=== PATIENT | female | born 1960 | race Caucasian/White ===

== ENCOUNTER 2024-10-24 18:28 | Inpatient (IN) | payer MEDICARE, SELFPAY ==
[2024-10-22 13:09] VITALS: BP 142/75
[2024-10-22 13:46] VITALS: BMI 22.0
[2024-10-22 13:53] VITALS: BP 134/62
[2024-10-22 14:00] VITALS: BP 137/76
--- NOTE | 2024-10-22 14:12 | ED.GENMED ---
History of Present Illness
General
Chief Complaint: Change in Mental Status
Time Seen by Provider: 10/22/24 14:11
History of Present Illness
History of Present Illness:
TIME OF INITIAL EVALUATION
- 2:15 PM
REVIEW OF OLD RECORDS
- The patient had an echo in 2020 that showed a normal EF at that time
CHIEF COMPLAINT(S)
Difficulty swallowing and confusion
HISTORY OF PRESENT ILLNESS
The patient is a 64-year-old female with a history of digestive issues including ulcers. For the past two months, she has experienced worsening difficulty swallowing. She describes being unable to move food effectively, stating, 'My food is just
stuck in my throat,' and occasionally aspirating liquids. She was scheduled for an endoscopy with a resolution agent in the coming week. Recently, starting two days ago, she began experiencing confusion and hallucinations, such as seeing people
who aren�t there and colors appearing brighter than usual. This is a new problem for her, with no past psychiatric history. The confusion was noted by her niece, who reported these unusual behaviors.
ADDITIONAL HISTORY OBTAINED FROM SOURCES OTHER THAN THE PATIENT
Per the niece, the patient appeared confused, talking to imaginary people yesterday, a new symptom without prior psychiatric history.
CHRONIC MEDICAL CONDITIONS SIGNIFICANTLY AFFECTING CARE
The patient has a history of digestive issues, including stomach ulcers.
MEDICATIONS
The patient is currently on the following medications:
- Gabapentin
- Glipizide
- Finasteride
- Levothyroxine 88 micrograms
REVIEW OF SYSTEMS
- Gastrointestinal: Difficulty swallowing food; unable to move food effectively, occasionally aspirating liquids.
- Neurological/Psychiatric: Confusion, seeing hallucinations (e.g., talking to imaginary people, enhanced perception of colors).
PHYSICAL EXAM
General: Alert, no acute distress.
Skin: Warm, dry.
Head: Normocephalic, atraumatic.
Neck: Supple, trachea midline.
Eye Ears, nose, mouth and throat: Oral mucosa moist.
Cardiovascular: Normal peripheral perfusion, No edema.
Respiratory: Respirations are non-labored.
Gastrointestinal: Abdomen nondistended.
Back: Normal range of motion, Normal alignment.
Musculoskeletal: Normal range of motion, normal strength.
Neurological: Alert and oriented to person, place, time, and situation, No focal neurological deficit observed, however she did state that [facility] was [facility]
Psychiatric: For the most part has been acting appropriately but appears to be slightly confused at times
PROBLEM LIST
Acute:
- Dysphagia
- Confusion and hallucinations
PLAN
1. Obtain blood work, including electrolyte panel, to check for possible electrolyte imbalances due to recent diarrhea and associated risk of low sodium.
2. Arrange for a computed tomography (CT) scan of the brain to rule out structural causes of delirium given the acute change in mental status.
3. Review and obtain the patients complete medication list from home for a comprehensive assessment.
4. Continue with the planned gastrointestinal endoscopy for further evaluation of swallowing difficulties.
DIFFERENTIAL DIAGNOSIS
The Differential Diagnosis includes, in no particular order and is not limited to:
1. Esophageal stricture or obstruction
2. Gastroesophageal reflux disease
3. Lower esophageal ring
4. Esophageal motility disorder
5. Pharyngeal diverticulum
6. Electrolyte imbalance (e.g., hyponatremia)
7. Central nervous system causes (e.g., stroke, tumor)
8. Delirium due to infection or other systemic causes
9. Drug-induced confusion or side effects
10. Psychiatric etiologies (e.g., brief psychotic disorder)
RADIOLOGY
- CT head shows no acute abnormality
LABS
- White count 8.1, hemoglobin 11.9, sodium normal, chemistries unremarkable, the patient has evidence of urinary tract infection, alcohol undetected
UPDATE
-SUMMARY OF ENCOUNTER
The patient presented to the emergency department with symptoms of dysphagia and acute confusion with recent hallucinations. Urine analysis showed signs of infection, raising concerns about a possible urinary tract infection contributing to her
altered mental status. The possibility of a combination of factors affecting the altered mental status was considered. Due to the significant change in mental status, the decision leaned towards hospital admission for intravenous antibiotics rather
than discharge with oral antibiotics. Efforts were made to verify the patients medication list, but it proved challenging due to limited access on a Thursday afternoon.
DISPOSITION
Awaiting hospitalist consultation for possible admission.
ASSESSMENT
The patients acute confusion and hallucinations may be due to infection, likely a urinary tract infection, leading to possible delirium. Hospital admission is considered for further evaluation and initiation of IV antibiotics.
MANAGEMENT OF THE PATIENTS CARE WAS DISCUSSED WITH
Consulted with a hospitalist regarding potential inpatient care and management with IV antibiotics.
PLAN
Plan includes admission for inpatient care, initiation of IV antibiotics, and continued monitoring of the patients mental and physical status. Further workup and management will continue in the hospital setting.
MEDICATION RECONCILIATION
Efforts to obtain the patients medication list were made but were delayed due to the weekend. Consult with pharmacy support was considered to assist in obtaining medication information.
MEDICAL DECISION MAKING
1. Number and Complexity of Problems Addressed:
Chronic conditions affecting care include a history of digestive issues, including stomach ulcers. Differential diagnosis considerations include esophageal stricture or obstruction, gastroesophageal reflux disease, lower esophageal ring, esophageal
motility disorder, pharyngeal diverticulum, electrolyte imbalance (e.g., hyponatremia), central nervous system causes (e.g., stroke, tumor), delirium due to infection or other systemic causes, drug-induced confusion or side effects, and psychiatric
etiologies (e.g., brief psychotic disorder).
2. Data: Amount and/or Complexity of Data Reviewed and Analyzed
Category 1:
- Initial urine analysis indicated signs of infection.
- Communication with the pharmacy was considered to verify medication usage.
Category 2:
- Input from an independent historian was considered as the patients cognitive status was altered.
Category 3:
- Discussion of management was conducted with a hospitalist regarding possible inpatient care for IV antibiotic administration.
3. Risk:
Prescription drug management was necessary for potential IV antibiotics. Consideration of admission/observation due to significant change in mental status and infection, with risks of complications from untreated or worsening conditions. This
included potential escalation of care depending on hospitalist evaluation.
DIAGNOSIS
- Urinary Tract Infection (N39.0)
- Acute Confusion/Delirium (R41.0)
Phy Exam
Physical Exam
Physical Exam:
See HPI
Course
Orders/Labs/Results
Orders:
Orders
10/22/24 13:59
Urinalysis Reflex To Culture Urgent
Date Specimen was Collected: 10/22/24
Time Specimen was Collected: 13:57
Urine Microscopic Reflex Cult Urgent
Urine Culture Urgent
IVIS Source: U
Specimen Description:
Date Specimen was Collected: 10/22/24
Time Specimen was Collected: 13:57
10/22/24 14:20
0.9% Sodium Chloride 500 ml [Nss] 500 ml IV BOLUS
10/22/24 14:21
CT Head W/o Iv Contrast Urgent
Comment:
Reason For Exam: alt ms
10/22/24 14:31
Alcohol Urgent
Complete Blood Count/With Diff Urgent
Comprehensive Metabolic Panel Urgent
Lipase Urgent
TSH Reflex To Free T4 Urgent
Abnormal Lab Results
10/22/24 10/22/24
13:59 14:31
RBC 4.02 L 10^6/uL
(4.20-5.40)
Hgb 11.9 L g/dL
(12.0-16.0)
Hct 36.4 L %
(37.0-47.0)
MCHC 32.7 L g/dL
(33.0-37.0)
Absolute Monos (auto) 0.7 H 10^3/uL
(0.1-0.6)
Lymphocytes % 17.3 L %
(20.5-51.1)
BUN 21 H mg/dl
(7-17)
Ur Occult Blood Reflex 2+ A
(Negative)
Urine Nitrite (Reflex) Positive A
(Negative)
Leukocyte Esterase Rfl 3+ A
(Negative)
Urine WBC (Reflex) 60-70 A /HPF
(0-5)
Urine Bacteria (Reflex) Moderate A
(Negative)
Urine Albumin (Reflex) 1+ A
(Neg - Trace)
10/22/24 14:31
10/22/24 14:31
Vital Signs
Initial and Last Documented VS:
Initial Vital Signs
Temp Pulse Resp BP Pulse Ox
36.4 C 66 16 142/75 98
10/22/24 13:09 10/22/24 13:09 10/22/24 13:09 10/22/24 13:09 10/22/24 13:09
Last Documented Vital Signs
Temp Pulse Resp BP Pulse Ox
36.4 C 58 16 146/72 100
10/22/24 13:09 10/22/24 15:20 10/22/24 15:20 10/22/24 15:20 10/22/24 15:20
*Pulse Oximetry
SaO2: 98
Oxygen Mode of Delivery: Room air
Patient hypoxic: not evaluated
*Critical Care Note
Total Time (30-74mins, 75-104mins- exclusive of procedures): Not Applicable
ED Attending Note
-
Portions of this chart may have been created with voice recognition software.� Occasional wrong word or��sound alike� substitutions may have occurred due to the inherent limitations of voice recognition software.
Discharge Plan
Departure
Referrals:
Mitchell Cruz, [Family Provider, Family Practice]
Interventions
Interventions:
*Risk Screen - Suicide Last Done: 10/22/24 13:09
*General Assessment Last Done: 10/22/24 13:09
*Neglect/Abuse Screening Last Done: 10/22/24 13:46
*ED- Fall Risk Assessment Last Done: 10/22/24 13:46
*ED COVID-19 Vaccine History Last Done: 10/22/24 13:46
ED- Neurological Assessment Last Done: 10/22/24 13:46
Discharge Date and Time
Print Language: LUXEMBOURGER
[2024-10-22 14:13] LABS: Urine Character Slightly Cloudy (Clear)
[2024-10-22 14:27] LABS: Urine Red Blood Cell 0-2 /HPF (0-2); Urine Squamous Cell 0-2 /LPF (Few); Urine White Cell 60-70 /HPF (0-5)
[2024-10-22] MEDS: NSS 500 IV (14:43)
[2024-10-22 14:55] LABS: Hematocrit 36.4 % (37.0-47.0); Hemoglobin 11.9 g/dL (12.0-16.0); Mean Corp Hgb Conc. 32.7 g/dL (33.0-37.0); Mean Corpuscular Volume 90.5 fL (81.0-99.0); Nucleated Red Blood Cells % 0 %; Platelet Count 250 10^3/uL (130-400); Red Cell Dist. Width 13.5 % (11.5-14.5)
[2024-10-22 15:09] LABS: ALT (SGPT) 21 U/L (0-35); AST (SGOT) 30 U/L (14-36); Albumin 4.5 g/dl (3.5-5.0); Alkaline Phosphatase 44 U/L (38-126); Blood Urea Nitrogen 21 mg/dl (7-17); Calcium 9.8 mg/dl (8.4-10.2); Carbon Dioxide 29 mmol/L (22-30); Chloride 103 mmol/L (98-107); Estimated Creatinine Clearance 74 ml/min; Glucose 88 mg/dl (70-99); Lipase 26 U/L (23-300); Potassium 4.3 mmol/L (3.5-5.1); Sodium 137 mmol/L (135-145); Total Protein 7.2 g/dl (6.3-8.2); eGFR > 60.00
[2024-10-22 15:20] VITALS: BP 146/72
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
[2024-10-22] MEDS: ROCEPHIN 1000 MG IV (16:06)
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
[2024-10-22 17:46] VITALS: BMI 20.9
[2024-10-22 18:19] VITALS: BP 136/72
[2024-10-22] MEDS: NEURONTIN 300 MG PO (20:31)
[2024-10-22] MEDS: DITROPAN 10 MG PO (20:31)
[2024-10-22] MEDS: HEPARIN 5000 UNITS SC (20:31)
[2024-10-22 23:14] VITALS: BP 106/58
[2024-10-23] MEDS: ZANAFLEX 2 MG PO ×2 (03:23→11:45)
[2024-10-23] MEDS: MOTRIN 400 MG PO (03:32)
[2024-10-23] MEDS: SYNTHROID 100 MCG PO (06:15)
[2024-10-23 06:58] LABS: Hematocrit 34.0 % (37.0-47.0); Hemoglobin 10.9 g/dL (12.0-16.0); Mean Corp Hgb Conc. 32.1 g/dL (33.0-37.0); Mean Corpuscular Volume 92.4 fL (81.0-99.0); Nucleated Red Blood Cells % 0 %; Platelet Count 231 10^3/uL (130-400); Red Cell Dist. Width 13.7 % (11.5-14.5)
[2024-10-23 07:22] LABS: ALT (SGPT) 16 U/L (0-35); AST (SGOT) 23 U/L (14-36); Albumin 3.7 g/dl (3.5-5.0); Alkaline Phosphatase 43 U/L (38-126); Blood Urea Nitrogen 22 mg/dl (7-17); Calcium 8.5 mg/dl (8.4-10.2); Carbon Dioxide 27 mmol/L (22-30); Chloride 108 mmol/L (98-107); Estimated Creatinine Clearance 65 ml/min; Glucose 85 mg/dl (70-99); Potassium 4.1 mmol/L (3.5-5.1); Sodium 138 mmol/L (135-145); Total Protein 6.0 g/dl (6.3-8.2); eGFR > 60.00
[2024-10-23 07:25] VITALS: BP 135/90
[2024-10-23] MEDS: THERAGRAN 1 TABLET PO (07:27)
[2024-10-23] MEDS: VITAMIN D3 (cholecalciferol) 25 MCG PO (07:27)
[2024-10-23] MEDS: DITROPAN 10 MG PO ×2 (07:27→19:50)
[2024-10-23] MEDS: PROTONIX 40 MG PO (07:27)
[2024-10-23] MEDS: FEOSOL 325 MG PO (07:27)
[2024-10-23] MEDS: NEURONTIN 300 MG PO ×3 (07:28→20:48)
[2024-10-23] MEDS: HEPARIN 5000 UNITS SC ×2 (07:31→19:50)
[2024-10-23] MEDS: ROCEPHIN 1000 MG IV (11:45)
[2024-10-23] MEDS: STERILE WATER FOR INJECTION 10 ML IV (11:45)
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
[2024-10-23 16:00] VITALS: BP 122/72
[2024-10-23 23:30] VITALS: BP 114/66
[2024-10-24] MEDS: ZANAFLEX 2 MG PO ×2 (04:20→21:29)
[2024-10-24] MEDS: SYNTHROID 100 MCG PO (04:21)
[2024-10-24 07:16] VITALS: BP 132/79
[2024-10-24] MEDS: NEURONTIN 300 MG PO ×3 (08:06→21:27)
[2024-10-24] MEDS: DITROPAN 10 MG PO ×2 (08:06→19:32)
[2024-10-24] MEDS: THERAGRAN 1 TABLET PO (08:06)
[2024-10-24] MEDS: FEOSOL 325 MG PO (08:06)
[2024-10-24] MEDS: PROTONIX 40 MG PO (08:06)
[2024-10-24] MEDS: VITAMIN D3 (cholecalciferol) 25 MCG PO (08:07)
[2024-10-24] MEDS: HEPARIN 5000 UNITS SC ×2 (08:07→19:30)
[2024-10-24] MEDS: STERILE WATER FOR INJECTION 10 ML IV (12:12)
[2024-10-24] MEDS: ROCEPHIN 1000 MG IV (12:12)
[2024-10-24 15:10] VITALS: BP 130/69
--- NOTE | 2024-10-24 16:20 | CM ---
CM reviewed chart, patient seen bedside, reports she may need home infusion upon discharge. Patient reports she recently moved from [facility] to [facility] ([address] [facility] [address]), will need home infusion agency that is local
to [facility]. Patient reports she has administered home infusion in the past. CM will follow for all ID recommendations.
Plan; watch for home infusion needs, will need servicing agency in [place], [place]
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
[2024-10-24] MEDS: COLACE 100 MG PO (19:35)
[2024-10-24] MEDS: MOTRIN 400 MG PO (21:32)
[2024-10-24 23:20] VITALS: BP 145/77
[2024-10-25] MEDS: SYNTHROID 100 MCG PO (05:07)
[2024-10-25] MEDS: VITAMIN D3 (cholecalciferol) 25 MCG PO (07:14)
[2024-10-25] MEDS: THERAGRAN 1 TABLET PO (07:14)
[2024-10-25] MEDS: PROTONIX 40 MG PO (07:14)
[2024-10-25] MEDS: FEOSOL 325 MG PO (07:14)
[2024-10-25] MEDS: DITROPAN 10 MG PO (07:14)
[2024-10-25] MEDS: NEURONTIN 300 MG PO ×3 (07:15→22:57)
[2024-10-25] MEDS: HEPARIN 5000 UNITS SC ×2 (07:15→20:21)
[2024-10-25] MEDS: ZANAFLEX 2 MG PO ×2 (07:24→23:02)
[2024-10-25 07:55] VITALS: BP 159/86
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
[2024-10-25] MEDS: LEVAQUIN 500 MG PO (09:59)
[2024-10-25] MEDS: CITROMA 300 ML PO (12:12)
[2024-10-25] MEDS: DULCOLAX 10 MG RECTAL (12:12)
--- NOTE | 2024-10-25 15:26 | CM ---
CM reviewed chart, patient seen in chair, reports discomfort as she is unable to urinate/have BM. IMM verbally reviewed with patient, provided with copy, placed in chart. CM will continue to follow for all discharge planning needs.
Plan; home no needs
[2024-10-25 15:27] VITALS: BP 158/96
[2024-10-25] MEDS: FLOMAX 0.4 MG PO (16:11)
--- NOTE | 2024-10-25 18:06 | PTCARENOTE ---
Patient unable to void thus far today, bladder scan and straight cath x 2 with much relief. C/o constipation, rec'd ducolax suppository, mag citrate and a milk of molasses enema. Moderate relief noted by patient. Will cont to monitor.
--- NOTE | 2024-10-25 20:18 | PTCARENOTE ---
Pt having difficulty urinating. Pt straight cathed early in AM and x2 during the day. [employer]ink [employer] Supervisor notified, oxybutynin dose for PM to be held.
[2024-10-25] MEDS: DITROPAN PO (20:21)
[2024-10-25] MEDS: SENOKOT-S 2 TABLET PO (20:22)
[2024-10-25] MEDS: MOTRIN 400 MG PO (23:00)
[2024-10-25 23:19] VITALS: BP 158/82
[2024-10-26] MEDS: SYNTHROID 100 MCG PO (05:36)
[2024-10-26 07:00] VITALS: BP 124/72
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
[2024-10-26] MEDS: LEVAQUIN 500 MG PO (08:07)
[2024-10-26] MEDS: VITAMIN D3 (cholecalciferol) 25 MCG PO (08:08)
[2024-10-26] MEDS: NEURONTIN 300 MG PO (08:08)
[2024-10-26] MEDS: HEPARIN 5000 UNITS SC (08:08)
[2024-10-26] MEDS: THERAGRAN 1 TABLET PO (08:08)
[2024-10-26] MEDS: FEOSOL 325 MG PO (08:08)
[2024-10-26] MEDS: PROTONIX 40 MG PO (08:09)
[2024-10-26] MEDS: SENOKOT-S PO (08:34)
[2024-10-26] MEDS: DITROPAN 10 MG PO (08:35)
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
--- NOTE | 2024-10-26 09:39 | CM ---
Patient is for discharge to home today, no needs
Plan; Home no needs.
[2024-10-26 11:00] VITALS: BP 113/71
== END 2024-10-26 12:28 | disposition home or self-care (01) | DRG 689 ==
LOC: 4 WEST ACU 18:28
PROVIDERS: Student in an Organized Health Care Education/Training Program; ADMITTING PHYSICIAN Hospitalist; ATTENDING PHYSICIAN Family Medicine; EMERGENCY PHYSICIAN Emergency Medicine; FAMILY PHYSICIAN Family Medicine
DX: N39.0 Urinary tract infection, site not specified (principal); G93.41 Metabolic encephalopathy; K59.00 Constipation, unspecified; R13.10 Dysphagia, unspecified; K52.9 Noninfective gastroenteritis and colitis, unspecified; Z87.11 Personal history of peptic ulcer disease; K21.9 Gastro-esophageal reflux disease without esophagitis; R33.8 Other retention of urine; G89.21 Chronic pain due to trauma; D64.9 Anemia, unspecified; Z79.890 Hormone replacement therapy; Z87.440 Personal history of urinary (tract) infections; B96.20 Unspecified Escherichia coli [E. coli] as the cause of diseases classified elsewhere
CPT/HCPCS: 70450; 80053; 81003; 81015; 82077; 83690; 84439; 84443; 85025; 87071; 87086; 87186; 96361; 96374; 99284